=== PATIENT | female | born 1940 | race Caucasian/White ===

== ENCOUNTER 2019-12-23 10:47 | Observation (INO) ==
[~2019-12-23 10:47] MED LIST: Buffered Lidocaine 1% SYRIN 1 ml INTRADERM ONE; Famotidine IV 10 MG/ML 2 ml VIAL (20 mg) IV ONE; Lactated Ringers 1000 ml BAG 1,000 ML IV SCH; Sodium Citrate/Citric Acid LIQ 15 ML UDC PO ONE
[2019-12-23] MEDS ORDERED: Famotidine IV 10 MG/ML 2 ml VIAL (20 mg) ONE (11:11)
[2019-12-23] MEDS ORDERED: Sodium Citrate/Citric Acid LIQ 15 ML UDC ONE (11:11)
[2019-12-23] MEDS ORDERED: ceFAZolin 2 GM PREMIX 2 GM/50 ML BAG ONE (11:11)
[2019-12-23] MEDS ORDERED: Midazolam 5 mg/5 ml VIAL 1 mg/ml 5 ml VIAL (5 mg) ONE (11:37)
[2019-12-23] MEDS ORDERED: Bupivacaine 0.5% SDV PF 30ML VIAL ONE (11:37)
[2019-12-23] MEDS ORDERED: Propofol 10 MG/ML 20 ML BTL ONE ×2 (11:43→15:23)
[2019-12-23] MEDS ORDERED: ROPIVACAINE 5 MG/ML 30 ML BTL (0.5%) ONE ×2 (12:28→12:42)
[2019-12-23] MEDS ORDERED: Ropivacaine 0.2% 2 MG/ML VIAL ONE (12:28)
[2019-12-23] MEDS ORDERED: Dexamethasone IV 4 MG/ML VIAL 1 ml VIAL ONE (12:40)
[2019-12-23] MEDS ORDERED: Lidocaine 1% MPF 5 ML VIAL ONE (12:42)
[2019-12-23] MEDS ORDERED: Glycopyrrolate IV 0.2 MG/ML 1 ML VIAL ONE (14:28)
[2019-12-23] MEDS ORDERED: fentaNYL 100 mcg/2 ml 50 MCG/ML VIAL ONE (14:35)
[2019-12-23] MEDS ORDERED: diPHENhydraMINE IV 50 MG/ML 1 ml VIAL (BENADRYL) IV PRN (14:47)
[2019-12-23] MEDS ORDERED: Ondansetron 4 mg VIAL 2 MG/ML 2 ml VIAL IV PRN ×2 (14:47→14:51)
[2019-12-23] MEDS ORDERED: Morphine 2 MG/ML SYRINGE IV PRN (14:47)
[2019-12-23] MEDS ORDERED: Ondansetron ODT 4 mg TAB 4 MG TAB PO PRN (14:47)
[2019-12-23] MEDS ORDERED: diPHENhydraMINE 25 mg TAB PO PRN (14:47)
[2019-12-23] MEDS ORDERED: Magnesium Hydroxide LIQ 30 ML UDC PO PRN (14:47)
[2019-12-23] MEDS ORDERED: Lactulose 30 ml UDC PO PRN (14:47)
[2019-12-23] MEDS ORDERED: Naloxone 0.4 mg VIAL 0.4 mg/ml 1 ml VIAL IV PRN (14:51)
[2019-12-23] MEDS ORDERED: fentaNYL 100 mcg/2 ml 50 MCG/ML VIAL IV PRN (14:51)
[2019-12-23] MEDS ORDERED: Acetaminophen IV 1 GM/100ML 1,000 MG/100 ML VIAL IVPB PRN (14:51)
[2019-12-23] MEDS ORDERED: HYDROmorphone 1 MG/1 ML SYRINGE IV PRN (14:51)
[2019-12-23] MEDS: Lactated Ringers 1000 ml BAG 1,000 ML IV SCH (17:51)
[2019-12-23] MEDS: oxyCODONE/Acetamin 5/325 mg TAB PO PRN (19:44)
[2019-12-23] MEDS: Magnesium Hydroxide LIQ 30 ML UDC PO SCH (20:36)
[2019-12-23] MEDS: ceFAZolin 1 GM ADVAN 1 GM in NS 0.9% 50 ML 50 ML IVPB SCH (22:06)
[2019-12-24] MEDS: Lactated Ringers 1000 ml BAG 1,000 ML IV SCH (05:16)
[2019-12-24] MEDS: oxyCODONE/Acetamin 5/325 mg TAB PO PRN ×2 (05:23→12:59)
[2019-12-24] MEDS: ceFAZolin 1 GM ADVAN 1 GM in NS 0.9% 50 ML 50 ML IVPB SCH ×2 (06:14→14:29)
[2019-12-24 06:52] LABS: Hematocrit 37 % (35-47); Hemoglobin 12.2 g/dL (12.0-16.0); Mean Platelet Volume 8.6 fL (7.4-10.4); Platelet Count 224 10^3/uL (150-450)
[2019-12-24 07:12] LABS: BUN/Creatinine Ratio 21.3 (8-20); Calcium 8.9 mg/dL (8.6-10.3); EGFR African American 83.3 (>60); EGFR Non-African American 68.8 (>60); Potassium 4.1 mmol/L (3.5-5.0)
[2019-12-24] MEDS: Magnesium Hydroxide LIQ 30 ML UDC PO SCH (08:29)
[2019-12-24] MEDS ORDERED: Vitamin THERAPEUTIC TAB PO SCH (09:00)
[2019-12-24 11:45] VITALS: BP 108/53
== END 2019-12-24 15:30 | disposition home or self-care (01) ==
LOC: SSU 10:47 → OR 10:47
PROVIDERS: ADMIT Orthopaedic Surgery Adult Reconstructive Orthopaedic Surgery; ATTEND Orthopaedic Surgery Adult Reconstructive Orthopaedic Surgery

== ENCOUNTER 2022-07-23 06:28 | Observation (INO) ==
[~2022-07-23 06:28] MED LIST changes: -Famotidine IV 10 MG/ML 2 ml VIAL (20 mg) IV ONE; -Sodium Citrate/Citric Acid LIQ 15 ML UDC PO ONE; +Tranexamic Acid 1,000 MG in NS 0.9% 50 ML IV ONE
[2022-07-23] MEDS ORDERED: ceFAZolin 2 GM in NS PREMIX 2 GM/100 ML BAG IVPB ONE (07:14)
[2022-07-23 07:48] LABS: Rapid COVID-19 Molecular Undetected (Undetected)
[2022-07-23] MEDS ORDERED: Dexamethasone IV 4 MG/ML VIAL 1 ml VIAL ONE (07:58)
[2022-07-23] MEDS ORDERED: Ondansetron 4 mg VIAL 2 MG/ML 2 ml VIAL ONE (07:58)
[2022-07-23] MEDS ORDERED: Glycopyrrolate IV 0.2 MG/ML 1 ML VIAL ONE (07:58)
[2022-07-23] MEDS ORDERED: Lidocaine 2% PF 5 ML VIAL ONE (07:58)
[2022-07-23] MEDS ORDERED: fentaNYL 100 mcg/2 ml 50 MCG/ML VIAL ONE ×2 (08:06→08:38)
[2022-07-23 08:15] LABS: INR 1.04 (0.88-1.18)
[2022-07-23] MEDS ORDERED: ROPIVACAINE 5 MG/ML 30 ML BTL (0.5%) ONE ×2 (08:32→08:47)
[2022-07-23] MEDS ORDERED: Midazolam 2 mg/2 ml VIAL 1 mg/ml 2 ml VIAL (2 mg) ONE ×2 (08:38→08:51)
[2022-07-23] MEDS ORDERED: Phenylephrine 40 mcg/mL 10mL (400mcg) SYRINGE ONE (08:54)
[2022-07-23] MEDS ORDERED: Naloxone 0.4 mg VIAL 0.4 mg/ml 1 ml VIAL IV PRN (09:42)
[2022-07-23] MEDS ORDERED: Ketamine HCL 50 mg/ml 10 ml VIAL (500 MG) ONE (09:53)
[2022-07-23] MEDS ORDERED: Acetaminophen IV 1 GM/100ML 1,000 MG/100 ML BAG IV ONE (10:02)
[2022-07-23] MEDS ORDERED: Morphine 2 MG/ML SYRINGE IV PRN (10:39)
[2022-07-23] MEDS ORDERED: Lactulose 30 ml UDC PO PRN (10:39)
[2022-07-23] MEDS ORDERED: Ondansetron 4 mg VIAL 2 MG/ML 2 ml VIAL IV PRN (10:39)
[2022-07-23] MEDS ORDERED: Ondansetron ODT 4 mg TAB 4 MG TAB PO PRN (10:39)
[2022-07-23] MEDS ORDERED: Magnesium Hydroxide LIQ 30 ML UDC PO PRN (10:39)
[2022-07-23] MEDS ORDERED: Propofol 10 MG/ML 20 ML BTL ONE (11:39)
[2022-07-23] MEDS ORDERED: HYDROmorphone 1 MG/1 ML SYRINGE ONE (12:14)
[2022-07-23] MEDS: HYDROmorphone 1 MG/1 ML SYRINGE IV PRN ×5 (12:16→13:08)
[2022-07-23] MEDS: Lactated Ringers 1000 ml BAG 1,000 ML IV SCH ×2 (13:35→23:50)
[2022-07-23] MEDS ORDERED: Acetaminophen IV 1 GM/100ML 1,000 MG/100 ML BAG IV PRN (16:49)
[2022-07-23] MEDS: ceFAZolin 1 GM ADVAN 1 GM in NS 0.9% 50 ML 50 ML IVPB SCH (18:10)
[2022-07-23] MEDS: Magnesium Hydroxide LIQ 30 ML UDC PO SCH (19:55)
[2022-07-24] MEDS: ceFAZolin 1 GM ADVAN 1 GM in NS 0.9% 50 ML 50 ML IVPB SCH ×2 (01:55→07:24)
[2022-07-24 06:39] LABS: Hematocrit 32.4 % (35-45); Hemoglobin 11.2 g/dL (11.5-14.3); Mean Platelet Volume 8.3 fL (7.5-11.2); Platelet Count 230 10^3/uL (150-450)
[2022-07-24] MEDS ORDERED: ceFAZolin 1 GM ADVAN 1 GM in NS 0.9% 50 ML 50 ML IVPB SCH (06:45)
[2022-07-24 06:59] LABS: Calcium 8.6 mg/dL (8.6-10.3); Creatinine, Serum 0.79 mg/dL (0.51-0.95); Potassium 4.3 mmol/L (3.5-5.0); eGFR CKD-EPI 73.7 (>60)
[2022-07-24] MEDS ORDERED: Vitamin THERAPEUTIC TAB PO SCH (09:00)
[2022-07-24 10:33] VITALS: BP 104/44
[2022-07-24] MEDS: Lactated Ringers 1000 ml BAG 1,000 ML IV SCH (10:35)
[2022-07-24] MEDS: Magnesium Hydroxide LIQ 30 ML UDC PO SCH (11:36)
== END 2022-07-24 12:15 | disposition home or self-care (01) ==
LOC: OR 06:28 → SSU 06:28
PROVIDERS: ADMIT Student in an Organized Health Care Education/Training Program; ATTEND Orthopaedic Surgery Adult Reconstructive Orthopaedic Surgery